=== PATIENT | male | born 2000 ===

== ENCOUNTER 2020-12-07 03:01 | Inpatient (IN) ==
[2020-12-07] MEDS ORDERED: Haloperidol Lactate 5 MG/ML VIAL IM PRN (04:12)
[2020-12-07] MEDS ORDERED: *HR* LORazepam 2 MG/ML VIAL IM PRN (04:12)
[2020-12-07] MEDS ORDERED: Acetaminophen 325 MG TABLET PO PRN (04:12)
[2020-12-07] MEDS ORDERED: hydrOXYzine pamoate 25 MG CAPSULE PO PRN (04:12)
[2020-12-07] MEDS: Nicotine 21 MG PATCH.TD24 TD SCH (09:03)
[2020-12-07] MEDS: haloperidoL 5 MG TABLET PO PRN (09:04)
[2020-12-07] MEDS: *HR* LORazepam 1 MG TABLET PO PRN (09:04)
[2020-12-07] MEDS ORDERED: Mag Hydrox/Al Hydrox/Simeth 30 ML UDC PO PRN (10:20)
[2020-12-07] MEDS ORDERED: MOM Conc 10 ML UD.LIQ PO PRN (10:20)
[2020-12-07] MEDS: risperiDONE 1 MG TABLET PO SCH (20:55)
[2020-12-07] MEDS ORDERED: ARIPiprazole 5 MG TABLET PO SCH (21:00)
[2020-12-07] MEDS: QUEtiapine Fumarate 25 MG TABLET PO PRN (22:20)
[2020-12-08] MEDS: Nicotine 21 MG PATCH.TD24 TD SCH (08:11)
[2020-12-08] MEDS: risperiDONE 1 MG TABLET PO SCH ×2 (08:11→20:02)
[2020-12-08] MEDS: QUEtiapine Fumarate 25 MG TABLET PO PRN ×2 (20:02→23:03)
[2020-12-08] MEDS: haloperidoL 5 MG TABLET PO PRN (21:20)
[2020-12-08] MEDS: *HR* LORazepam 1 MG TABLET PO PRN (21:20)
[2020-12-09] MEDS: Nicotine 21 MG PATCH.TD24 TD SCH (10:16)
[2020-12-09] MEDS: risperiDONE 1 MG TABLET PO SCH ×2 (10:21→23:10)
[2020-12-09] MEDS: QUEtiapine Fumarate 25 MG TABLET PO PRN (23:10)
[2020-12-10] MEDS: Nicotine 21 MG PATCH.TD24 TD SCH (09:31)
[2020-12-10] MEDS: risperiDONE 1 MG TABLET PO SCH ×2 (09:31→21:10)
[2020-12-10 21:42] VITALS: BP 111/69; O2SAT 97
[2020-12-11] MEDS: risperiDONE 1 MG TABLET PO SCH (10:01)
[2020-12-11 10:02] VITALS: PULSE 109; TEMP 98.8
[2020-12-11] MEDS: Nicotine 21 MG PATCH.TD24 TD SCH ×2 (10:04→11:11)
[2020-12-11] MEDS ORDERED: [UNRECOGNIZED DRUG - REMARK] IM ONE (11:08)
[2020-12-11] MEDS ORDERED: FLU Vac QV 21-22 (6Month+)/PF 0.5 ML SYRINGE IM ONE (11:30)
== END 2020-12-11 12:30 | disposition home or self-care (01) | DRG 885 ==
LOC: 1ANU 03:01
PROVIDERS: ADMIT Psychiatry & Neurology Psychiatry; ATTEND Psychiatry & Neurology Psychiatry